=== PATIENT | female | born 2005 | race Caucasian/White ===

== ENCOUNTER 2024-07-31 01:36 | Emergency (ER) | payer OTHER, SELFPAY | END 2024-07-31 02:41 | LOC: ERS 01:36 | DX: S90.821A Blister (nonthermal), right foot, initial encounter (principal); M79.641 Pain in right hand; V89.2XXA Person injured in unspecified motor-vehicle accident, traffic, initial encounter; Z02.89 Encounter for other administrative examinations; Z65.3 Problems related to other legal circumstances | CPT/HCPCS: 71045 ==